=== PATIENT | female | born 1950 | race Caucasian/White ===

== ENCOUNTER 2018-12-17 06:44 | Day surgery (SDC) | payer MEDICARE ==
[~2018-12-17] VITALS: Ht 162.6 cm; Wt 81.2 kg
[~2018-12-17 06:44] MED LIST: ASPI81CH PO
--- NOTE | 2018-12-17 07:15 | NUR ---
Ambulatory in Day Surgery History, Chart, Medications and Allergies reviewed before start of procedure.Patient confirms NPO status and agrees with scheduled surgery. Lungs clear T/O to Auscultation.
--- NOTE | 2018-12-17 07:51 | NUR ---
12/17/18 0751 [address] Hemphill History, Chart, Medications and Allergies reviewed before start of procedure.MONITOR INTACT WITH CONTINUOUS PULSE OXIMETRY AND INTERMITTENT BP.3-LEAD EKG REVIEWED WITH PHYSICIAN PRIOR TO START OF PROCEDURE.O2 VIA N/C INTACT THROUGHOUT SEDATION/PROCEDURE. Patient confirms NPO status and agrees with scheduled surgery.PATIENT DETERMINED TO BE ASA APPROPRIATE FOR PROPOFOL SEDATION PRIOR TO START OF PROCEDURE BY DR. GUSTAFSON.
--- NOTE | 2018-12-17 08:30 | NUR ---
RECIEVED PATIENT FROM ENDO ROOM 1 RECIEVED REPORT. PATIENT ARROUSABLE LEONA SLEEPY
--- NOTE | 2018-12-17 08:47 | NUR ---
Discharge instructions reviewed with patient. Patient verbalizes understanding. Copy given to patient to take home. Patient States Post-Procedure ride home has been arranged. Discharged via wheelchair to private car for ride home.
== END 2018-12-17 22:44 | disposition home or self-care (01) ==
LOC: ORSCMMR 06:44 → ORD 08:00 → ORSCMMR 08:00
PROVIDERS: Internal Medicine Gastroenterology
PROC: 0DBN8ZX Excision of Sigmoid Colon, Via Natural or Artificial Opening Endoscopic, Diagnostic (ICD-10-PCS; principal; 2018-12-17 08:00)
DX: Z12.11 Encounter for screening for malignant neoplasm of colon (principal); D12.5 Benign neoplasm of sigmoid colon; K63.5 Polyp of colon; K64.8 Other hemorrhoids; K64.4 Residual hemorrhoidal skin tags; F17.210 Nicotine dependence, cigarettes, uncomplicated; Z79.82 Long term (current) use of aspirin
CPT/HCPCS: 88305; J2704; J7120

== ENCOUNTER 2019-02-25 06:05 | Day surgery (SDC) | payer MEDICARE ==
[~2019-02-25 06:05] MED LIST changes: +ACET325 PO; +Ibuprofen Ib200 MG PO; +MAGNESIUM250 MG PO
--- NOTE | 2019-02-25 10:00 | NUR ---
PT AND VERBALIZED UNDERSTANDING OF WRITTEN AND VERBAL D/C INST. IV REMOVED. PT TAKEN OUT OF THE [facility]ENTER VIA W/C.
--- NOTE | 2019-02-27 09:57 | NUR ---
PT RETURNS TODAY TO HAVE WRAP REMOVED BY STAFF ON RIGHT LEG S/P SCLEROTHERAPY AND PHLEBECTOMY. PT STATES THAT SHE HAD AN ISSUE WITH THE RIGHT LEG BLEEDING "PULSATING BLOOD" AFTER HER PROCEDURE ON 02/25/19, STATES THAT SHE LIVES IN [place], [place] AND IS C/O PTSD RELATED TO THE BLEEDING INCIDENT. COMPRESSION SOCK AND WRAP REMOVED FROM RLE WITH NO ISSUES. PT WAS ABLE TO AMBULATE AROUND ROOM WITH NO BLEEDING. PT ABLE TO GET SELF DRESSED WITH NO NEEDED ASSISTANCE. PT DAUGHTER WAS WITH HER TODAY, BOTH APPEAR TO BE VERY CONCERNED RELATED TO PT HAVING LEFT LEG SCHEDULED FOR NEXT WEEK WITH SAME PROCEDURE. PT REPORTS THAT SHE IS GOING TO GO OVER TO DR. REYNOLDS'S OFFICE TO SPEAK WITH HIM. PATIENT ADVOCATE CONTACT INFORMATION GIVEN TO PT TO TRY AND HELP ADDRESS CONCERN ABOUT UNCONTROLLED PAIN DURING PROCEDURE.
[2019-03-10] MEDS ORDERED: MAGNESIUM250 MG PO (16:25)
== END 2019-02-25 22:37 | disposition home or self-care (01) ==
LOC: MHTC 06:05
DX: I83.91 Asymptomatic varicose veins of right lower extremity (principal); I87.2 Venous insufficiency (chronic) (peripheral); F17.210 Nicotine dependence, cigarettes, uncomplicated
CPT/HCPCS: 36471; 37766; 99152; 99153; J1644; J2250; J3010; J7040

== ENCOUNTER 2019-03-04 11:47 | Day surgery (SDC) | payer MEDICARE ==
[~2019-03-04] VITALS: Ht 162.6 cm; Wt 81.0 kg
[2019-03-04] MEDS ORDERED: ATORVASTATIN PO (12:54)
[2019-03-10] MEDS ORDERED: MAGNESIUM250 MG PO (16:25)
== END 2019-03-04 22:47 | disposition home or self-care (01) ==
LOC: MHTC 11:47
DX: I87.2 Venous insufficiency (chronic) (peripheral) (principal); F17.210 Nicotine dependence, cigarettes, uncomplicated
CPT/HCPCS: 36475; 99152; 99153; C1769; C1888; C1894; J1644; J2250; J3010; J7040

== ENCOUNTER 2019-03-11 09:41 | Day surgery (SDC) | payer MEDICARE ==
[~2019-03-11] VITALS: Ht 162.6 cm; Wt 82.0 kg
[~2019-03-11 09:41] MED LIST changes: +ATORVASTATIN PO
[2019-03-11] MEDS ORDERED: ATORVASTATIN PO (10:13)
== END 2019-03-11 22:52 | disposition home or self-care (01) ==
LOC: MHTC 09:41
DX: I83.93 Asymptomatic varicose veins of bilateral lower extremities (principal); I87.2 Venous insufficiency (chronic) (peripheral)
CPT/HCPCS: 36471; 37765; 99152; 99153; J2250; J3010; J7040

== ENCOUNTER → 2020-05-06 | Outpatient (CLI) | payer MEDICARE ==
[2020-05-06 18:05] LABS: BASOPHILS ABSOLUTE AUTO 0.05 K/mm3 (0.00-0.23); BASOPHILS PERCENT AUTO 1 % (0-2); EOSINOPHILS ABSOLUTE AUTO 0.12 K/mm3 (0.00-0.68); EOSINOPHILS PERCENT AUTO 2 % (0-6); Hematocrit 42.8 % (33.0-51.0); Hemoglobin 13.6 g/dL (11.5-16.0); IMMATURE GRAN ABSOLUTE AUTO 0.03 K/mm3 (0.00-0.10); IMMATURE GRAN PERCENT AUTO 1 % (0-1); LYMPHOCYTES ABSOLUTE AUTO 1.81 K/mm3 (0.84-5.20); LYMPHOCYTES PERCENT AUTO 35 % (21-46); MONOCYTES ABSOLUTE AUTO 0.49 K/mm3 (0.16-1.47); MONOCYTES PERCENT AUTO 10 % (4-13); Mean Corpuscular HGB 32.1 pg (26.0-34.0); Mean Corpuscular HGB Conc 31.8 g/dL (31.5-36.5); Mean Corpuscular Volume 101 fL (80-100); Mean Platelet Volume 12.7 fL (9.1-12.4); NEUTROPHILS ABSOLUTE AUTO 2.66 K/mm3 (1.96-9.15); NEUTROPHILS PERCENT AUTO 52 % (41-73); Platelet Count 182 K/mm3 (150-400); RDW Coefficient Variation 12.7 % (11.7-14.2); RDW Standard Deviation 47.5 fL (35.1-46.3); Red Blood Cell Count 4.24 M/mm3 (3.80-5.20); White Blood Cell Count 5.16 K/mm3 (4.00-11.30)
[2020-05-06 18:43] LABS: Alanine Aminotransfer (ALT/SGP 18 U/L (12-78); Albumin, Blood 4.1 g/dL (3.4-5.0); Alk Phos 87 U/L (50-136); Anion Gap 5 mmol/L (6-16); Aspartate Aminotrans (AST/SGOT 16 U/L (12-37); Bilirubin, Total 0.4 mg/dL (0.1-1.0); Blood Urea Nitrogen 14 mg/dL (8-24); Bun/Creatinine Ratio 19.3 (12.0-20.0); CHOL/HDL RATIO 3.6; CO2, Blood 28 mmol/L (21-32); Calcium, Blood 9.9 mg/dL (8.5-10.1); Chloride, Blood 107 mmol/L (98-108); Cholesterol 261 mg/dL (50-200); Creatinine, Blood 0.72 mg/dL (0.40-1.00); Globulin, Blood 4.3 g/dL (2.2-4.0); Glomerular Filtration Rate >60 (60-); Glucose, Blood 87 mg/dL (70-99); HDL Cholesterol 73 mg/dL (>39); LDL/HDL RATIO 2.2; Low Density Lipoprotein Chol 159 mg/dL (0-110); Potassium, Blood 4.4 mmol/L (3.5-5.5); Sodium, Blood 140 mmol/L (136-145); Total Protein, Blood 8.4 g/dL (6.4-8.2); Triglycerides 143 mg/dL (30-160); Very Low Density Lipoprot Chol 28 mg/dL (6-32)
[2020-05-07 08:09] LABS: HBSAG SCREEN Negative (Negative); HEP B CORE AB, TOT Negative (Negative); HEP C VIRUS AB <0.1 (0.0-0.9)
== END ==
LOC: LAB 17:42 → LAB SHORT 17:42
PROVIDERS: Family Medicine
DX: Z11.59 Encounter for screening for other viral diseases (principal); E78.5 Hyperlipidemia, unspecified; I10 Essential (primary) hypertension
CPT/HCPCS: 80053; 80061; 84443; 85025; 86704; 86708; 86803; 87340

== ENCOUNTER 2020-11-02 16:14 | Emergency (ER) | payer MEDICARE, OTHER ==
[~2020-11-02] VITALS: Ht 167.6 cm; Wt 84.8 kg
== END 2020-11-02 20:50 | disposition home or self-care (01) ==
LOC: ER 16:14
DX: M54.5 Low back pain (principal); G89.29 Other chronic pain
CPT/HCPCS: 36415; 80053; 85025; 93005; 93010; 96374; 99283-25; A9270; J1100

== ENCOUNTER → 2021-11-28 | Outpatient (CLI) | payer OTHER ==
[~2021-11-28] MED LIST changes: +METPRE4DP PO; +Robaxin750 MG PO
== END | disposition home or self-care (01) ==
LOC: LAB SHORT 14:30 → LAB 14:30
DX: L02.91 Cutaneous abscess, unspecified (principal)
CPT/HCPCS: 87070; 87205

== ENCOUNTER → 2023-01-18 | Outpatient (CLI) | payer OTHER ==
[2023-01-18 19:43] LABS: BASOPHILS ABSOLUTE AUTO 0.06 K/mm3 (0.00-0.23); BASOPHILS PERCENT AUTO 1 % (0-2); EOSINOPHILS ABSOLUTE AUTO 0.13 K/mm3 (0.00-0.68); EOSINOPHILS PERCENT AUTO 2 % (0-6); Hematocrit 37.7 % (33.0-51.0); Hemoglobin 12.7 g/dL (11.5-16.0); IMMATURE GRAN ABSOLUTE AUTO 0.04 K/mm3 (0.00-0.10); IMMATURE GRAN PERCENT AUTO 1 % (0-1); LYMPHOCYTES PERCENT AUTO 29 % (21-46); MONOCYTES ABSOLUTE AUTO 0.51 K/mm3 (0.16-1.47); MONOCYTES PERCENT AUTO 9 % (4-13); Mean Corpuscular HGB 32.6 pg (26.0-34.0); Mean Corpuscular HGB Conc 33.7 g/dL (31.5-36.5); Mean Corpuscular Volume 97 fL (80-100); Mean Platelet Volume 12.3 fL (9.1-12.4); NEUTROPHILS ABSOLUTE AUTO 3.16 K/mm3 (1.96-9.15); NEUTROPHILS PERCENT AUTO 57 % (41-73); Platelet Count 200 K/mm3 (150-400); RDW Coefficient Variation 12.4 % (11.7-14.2); RDW Standard Deviation 44.4 fL (35.1-46.3); Red Blood Cell Count 3.89 M/mm3 (3.80-5.20)
[2023-01-18 19:51] LABS: Alanine Aminotransfer (ALT/SGP 21 U/L (12-78); Albumin, Blood 3.9 g/dL (3.4-5.0); Alk Phos 86 U/L (50-136); Anion Gap 6 mmol/L (6-16); Aspartate Aminotrans (AST/SGOT 19 U/L (12-37); Bilirubin, Total 0.3 mg/dL (0.1-1.0); Blood Urea Nitrogen 15 mg/dL (8-24); Bun/Creatinine Ratio 18.6 (12.0-20.0); CHOL/HDL RATIO 2.5; CO2, Blood 29 mmol/L (21-32); Calcium, Blood 9.5 mg/dL (8.5-10.1); Chloride, Blood 105 mmol/L (98-108); Cholesterol 188 mg/dL (50-200); Creatinine, Blood 0.81 mg/dL (0.40-1.00); Glomerular Filtration Rate 77 (60-); Glucose, Blood 112 mg/dL (70-99); HDL Cholesterol 76 mg/dL (>39); Low Density Lipoprotein Chol 79 mg/dL (0-110); Potassium, Blood 3.6 mmol/L (3.5-5.5); Sodium, Blood 140 mmol/L (136-145); Total Protein, Blood 7.9 g/dL (6.4-8.2); Triglycerides 165 mg/dL (30-160); Very Low Density Lipoprot Chol 33 mg/dL (6-32)
== END ==
LOC: LAB SHORT 18:17 → LAB 18:17
PROVIDERS: Family Medicine
DX: Z51.81 Encounter for therapeutic drug level monitoring (principal); Z79.899 Other long term (current) drug therapy
CPT/HCPCS: 80053; 80061; 83036; 84443; 85025

== ENCOUNTER → 2023-11-07 | Outpatient (CLI) | payer OTHER ==
[2023-11-07 19:27] LABS: BASOPHILS ABSOLUTE AUTO 0.04 K/mm3 (0.00-0.23); BASOPHILS PERCENT AUTO 1 % (0-2); EOSINOPHILS ABSOLUTE AUTO 0.12 K/mm3 (0.00-0.68); EOSINOPHILS PERCENT AUTO 2 % (0-6); Hematocrit 37.9 % (33.0-51.0); Hemoglobin 12.5 g/dL (11.5-16.0); IMMATURE GRAN ABSOLUTE AUTO 0.03 K/mm3 (0.00-0.10); IMMATURE GRAN PERCENT AUTO 1 % (0-1); LYMPHOCYTES ABSOLUTE AUTO 1.78 K/mm3 (0.84-5.20); LYMPHOCYTES PERCENT AUTO 29 % (21-46); MONOCYTES ABSOLUTE AUTO 0.47 K/mm3 (0.16-1.47); MONOCYTES PERCENT AUTO 8 % (4-13); Mean Corpuscular HGB 31.8 pg (26.0-34.0); Mean Corpuscular Volume 96 fL (80-100); Mean Platelet Volume 11.9 fL (9.1-12.4); NEUTROPHILS ABSOLUTE AUTO 3.64 K/mm3 (1.96-9.15); NEUTROPHILS PERCENT AUTO 60 % (41-73); Platelet Count 205 K/mm3 (150-400); RDW Coefficient Variation 12.3 % (11.7-14.2); RDW Standard Deviation 43.5 fL (35.1-46.3); Red Blood Cell Count 3.93 M/mm3 (3.80-5.20); White Blood Cell Count 6.08 K/mm3 (4.00-11.30)
[2023-11-07 20:10] LABS: Alanine Aminotransfer (ALT/SGP 22 U/L (12-78); Albumin, Blood 3.9 g/dL (3.4-5.0); Albumin/Globulin Ratio 1.1 (0.8-1.8); Alk Phos 91 U/L (50-136); Anion Gap 9 mmol/L (3-11); Aspartate Aminotrans (AST/SGOT 17 U/L (12-37); Bilirubin, Direct 0.1 mg/dL (0.0-0.3); Bilirubin, Indirect 0.2 mg/dL (0.1-0.7); Bilirubin, Total 0.3 mg/dL (0.1-1.0); Blood Urea Nitrogen 19 mg/dL (8-24); Bun/Creatinine Ratio 21.4 (12.0-20.0); CHOL/HDL RATIO 2.1; CO2, Blood 29 mmol/L (21-32); Calcium, Blood 9.7 mg/dL (8.5-10.1); Chloride, Blood 106 mmol/L (98-108); Cholesterol 154 mg/dL (50-200); Creatinine, Blood 0.89 mg/dL (0.40-1.00); Globulin, Blood 3.7 g/dL (2.2-4.0); Glomerular Filtration Rate 68 (60-); Glucose, Blood 107 mg/dL (70-99); HDL Cholesterol 74 mg/dL (>39); LDL/HDL RATIO 0.8; Low Density Lipoprotein Chol 60 mg/dL (0-110); Magnesium, Blood 2.7 mg/dL (1.6-2.4); Potassium, Blood 4.3 mmol/L (3.5-5.5); Sodium, Blood 140 mmol/L (136-145); Total Protein, Blood 7.6 g/dL (6.4-8.2); Triglycerides 102 mg/dL (30-160); Very Low Density Lipoprot Chol 20 mg/dL (6-32)
== END ==
LOC: LAB SHORT 18:57 → LAB 18:57
PROVIDERS: Nurse Practitioner Family
DX: E83.42 Hypomagnesemia (principal); I50.32 Chronic diastolic (congestive) heart failure; E78.2 Mixed hyperlipidemia; E11.42 Type 2 diabetes mellitus with diabetic polyneuropathy; B35.1 Tinea unguium
CPT/HCPCS: 80053; 80061; 82248; 83036; 83735; 83880; 85025

== ENCOUNTER → 2025-03-09 | Outpatient (CLI) | payer OTHER | LOC: LAB 18:13 → LAB SHORT 18:13 | DX: E11.9 Type 2 diabetes mellitus without complications (principal) | CPT/HCPCS: 82043 ==

== ENCOUNTER → 2025-05-31 | Outpatient (CLI) | payer OTHER ==
[2025-05-31 20:39] LABS: Thyroid Stimulating Hormone 1.89 uIU/mL (0.360-4.800)
== END ==
LOC: LAB SHORT 19:21 → LAB 19:21
PROVIDERS: Nurse Practitioner Family
DX: E07.9 Disorder of thyroid, unspecified (principal)
CPT/HCPCS: 84439; 84443; 84481